=== PATIENT | female | born 1960 | race Caucasian/White ===

== ENCOUNTER 2017-08-07 19:40 | Emergency (ER) | payer BC, MEDICAID, OTHER ==
[2017-08-07] MEDS ORDERED: Ketorolac 60 MG/2 ML SDV IM ONE (19:59)
--- NOTE | 2017-08-07 20:00 | EDM.PDOC ---
ED HPI GENERAL MEDICAL PROBLEM - General Chief Complaint: Back Pain or Injury Stated Complaint: BACK PAIN Time Seen by Provider: 08/07/17 19:40 Source of Information: Reports: Patient History Limitations: Reports: No Limitations - History of Present Illness INITIAL COMMENTS - FREE TEXT/NARRATIVE: 56 y.o. w f came to the ed 5 days after she fell straight on her back on cocreate. She came to the ed today because she had pain at her right lower back , especially with movement. No N/V/D or any other acute medical issues. 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 Right Lower Back Pain Score (Numeric/FACES): 7 - Related Data Allergies Allergy/AdvReac Type Severity Reaction Status Date / Time beta blockers Allergy Rash Uncoded 03/31/15 20:18 Home Meds: Home Meds Acyclovir [Zovirax 5% Oint] 1 applic TOP Q3HR PRN 08/21/15 [History] Aspirin [Halfprin] 81 mg PO DAILY 08/21/15 [History] Carboxymethylcellulos/Glycerin [Refresh Optive Gel Eye Drops] 1 drop EYEBOTH ASDIRECTED PRN 08/21/15 [History] Cyanocobalamin (Vitamin B-12) [Cyanocobalamin Injection] 1,000 mcg IJ ASDIRECTED 08/21/15 [History] Ibuprofen [Advil] 400 mg PO Q6H PRN 08/21/15 [History] Levothyroxine 112 mcg PO DAILY 08/21/15 [History] Ciprofloxacin HCl [Cipro] 500 mg PO BID #20 tablet 08/07/17 [Rx] traMADol [Ultram] 50 mg PO Q4H PRN #10 tab 08/07/17 [Rx] Past Medical History Other Psychiatric History: hx of etoh abuse has been sober x 15 years Social & Family History - Tobacco Use Smoking Status *Q: Never Smoker Second Hand Smoke Exposure: No - Recreational Drug Use Recreational Drug Use: No ED ROS GENERAL - Review of Systems Review Of Systems: See Below Constitutional: Reports: No Symptoms HEENT: Reports: No Symptoms Respiratory: Reports: No Symptoms Cardiovascular: Reports: No Symptoms Endocrine: Reports: No Symptoms GI/Abdominal: Reports: No Symptoms : Reports: No Symptoms Musculoskeletal: Reports: Back Pain Skin: Reports: No Symptoms Neurological: Reports: No Symptoms Psychiatric: Reports: No Symptoms Hematologic/Lymphatic: Reports: No Symptoms Immunologic: Reports: No Symptoms ED EXAM,LOWER BACK PAIN/INJURY - Physical Exam Exam: See Below Exam Limited By: No Limitations General Appearance: Alert, WD/WN Eye Exam: Bilateral Eye: Normal Inspection Ears: Normal External Exam Nose: Normal Inspection Throat/Mouth: Normal Inspection, Normal Lips Head: Atraumatic, Normocephalic Neck: Normal Inspection, Supple, Non-Tender, Full Range of Motion Respiratory/Chest: No Respiratory Distress, Lungs Clear, Normal Breath Sounds, No Accessory Muscle Use, Chest Non-Tender Cardiovascular: Normal Peripheral Pulses, Regular Rate, Rhythm, No Edema, No Gallop GI/Abdominal: Normal Bowel Sounds, Soft, Non-Tender (Female) Exam: Deferred Rectal (Female) Exam: Deferred Back Exam: Normal Inspection, Paraspinal Tenderness (right sided) Extremities: Normal Inspection, Normal Range of Motion, Non-Tender, No Pedal Edema, Normal Capillary Refill Neurological: Alert, Normal Mood/Affect, Normal Dorsiflexion, CN II-XII Intact, Normal Plantar Flexion, Other (abnormal gait due to right lower back pain. ) Psychiatric: Normal Affect, Normal Mood Skin Exam: Warm, Dry, Intact, Normal Color, No Rash Lymphatic: No Adenopathy Course - Vital Signs Text/Narrative:: 56 y.o. w f came to the ed 5 days after she fell straight on her back on cocreate. She came to the ed today because she had pain at her right lower back , especially with movement. No N/V/D or any other acute medical issues. BP 133/ 80 RR 20 Temp 35.8 pulse 72 Pulse ox 100% on RA PE: WNWD WF with tender right lower back pain, paravertebral Labs: UA pos for UTI Imaging: Pt refused X rays. Impression: Low back pain after a fall last Wednesday, UTI Tx: Cipro, Toradol Reexam: Improved, pt was ambulating fine on D/C Plan: D/C with instructions Last Recorded V/S: Last Vital Signs Temp 35.8 C 08/07/17 19:57 Pulse 78 08/07/17 19:57 Resp 20 08/07/17 19:57 BP 133/80 08/07/17 19:57 Pulse Ox 100 08/07/17 19:57 - Orders/Labs/Meds Labs: Laboratory Tests 08/07/17 Range/Units 20:05 Urine Color Yellow (YELLOW) Urine Appearance Clear (CLEAR) Urine pH 5.0 (5.0-6.5) Ur Specific [place] 1.020 (1.010-1.025) Urine Protein Negative (NEGATIVE) mg/dL Urine Glucose (UA) Normal (NEGATIVE) mg/dL Urine Ketones Negative (NEGATIVE) mg/dL Urine Occult Blood Negative (NEGATIVE) Urine Nitrite Negative (NEGATIVE) Urine Bilirubin Negative (NEGATIVE) Urine Urobilinogen Normal (NEGATIVE) mg/dL Ur Leukocyte Esterase Large H (NEGATIVE) Urine RBC 0-5 (0) Urine WBC 5-10 (0) Ur Squamous Epith Cells Moderate H (NS,R,O) Urine Bacteria Moderate H (NS) Hyaline Casts Few H (NS) Urine Mucus Few H (NS) Meds: Medications Discontinued Medications Generic Name Dose Route Start Last Admin Trade Name Jaidenq PRN Reason Stop Dose Admin Ketorolac Tromethamine 60 mg 08/07/17 19:59 08/07/17 20:08 Toradol IM 08/07/17 20:00 60 mg ONETIME ONE Administration Levofloxacin 500 mg 08/07/17 20:28 08/07/17 20:32 Levaquin PO 08/07/17 20:29 500 mg ONETIME STA Administration Departure - Departure Time of Disposition: 20:31 Disposition: Home, Self-Care 01 Condition: Good Clinical Impression: UTI (urinary tract infection) Qualifiers: Urinary tract infection type: acute cystitis Hematuria presence: without hematuria Qualified Code(s): N30.00 - Acute cystitis without hematuria Back pain Qualifiers: Back pain location: low back pain Chronicity: acute Back pain laterality: right Sciatica presence: without sciatica Qualified Code(s): M54.5 - Low back pain Fall Qualifiers: Encounter type: initial encounter Qualified Code(s): W19.XXXA - Unspecified fall, initial encounter - Discharge Information Prescriptions: Ciprofloxacin HCl [Cipro] 500 mg PO BID #20 tablet traMADol [Ultram] 50 mg PO Q4H PRN #10 tab PRN Reason: severe pain Referrals: Holly Velez SITE DIRECTOR [Primary Care Provider] - Forms: ED Department Discharge Additional Instructions: Please apply ICE to lower back, Motrin 600 mg every 8 hours, Ultram for severe pain, ICE to lower back, Abx as recommended, please f/u, come back if your symptoms get worse acutely
[2017-08-07 20:03] VITALS: BP 133/80
[2017-08-07] MEDS ORDERED: Levofloxacin 500 MG Tab PO STA (20:28)
== END 2017-08-07 20:38 | disposition home or self-care (01) ==
LOC: FB.ED 19:40
DX: M54.5 Low back pain (principal); N30.00 Acute cystitis without hematuria; Z79.82 Long term (current) use of aspirin; Z88.8 Allergy status to other drugs, medicaments and biological substances; W01.198A Fall on same level from slipping, tripping and stumbling with subsequent striking against other object, initial encounter
CPT/HCPCS: 81001; 87086; 96372; 99283; A9270; J1885

== ENCOUNTER 2017-09-26 10:49 | Emergency (ER) | payer BC, OTHER ==
[2017-09-26] MEDS ORDERED: Lidocaine 1% 20 ML MDV INFILT ONE (10:50)
[2017-09-26 12:47] VITALS: BP 107/59
--- NOTE | 2017-09-29 09:34 | ER ---
DATE SEEN: 09/26/2017 TIME SEEN: The patient was seen at 1110 hours. HISTORY OF PRESENT ILLNESS: This 56-year-old woman who was found in the kitchen, cut her left dorsum of the MP joint distal to the MP joint and has mild bleeding and tenderness. No loss of sensation or change in range of motion. Otherwise, the patient is healthy. She is allergic to beta-linnea. She is on levothyroxine and has hypothyroidism, otherwise healthy. REVIEW OF SYSTEMS: Negative. PHYSICAL EXAMINATION: VITAL SIGNS: 128/72, heart rate 62, respirations 18, oxygen saturation 100%. 74.8 kg. BMI is 32.2 kg. HEENT: Without abnormality. LUNGS: Clear. HEART: Without murmur. ABDOMEN: Negative. Left hand, left 5th MP joint laceration is approximately 1.5 cm long. Wound was cleansed and injected with lidocaine and closed with 3 stitches of interrupted 4- 0 Ethilon. The patient did have this sutured. ASSESSMENT: Laceration of left hand, left finger. No involvement of tendons. PLAN: Sutures out in 10 to 14 days. Bacitracin to wound daily. /[id number] ESTRELLA/TYRA
== END 2017-09-26 12:45 | disposition home or self-care (01) ==
LOC: FB.ED 10:49
DX: S61.217A Laceration without foreign body of left little finger without damage to nail, initial encounter (principal); E03.9 Hypothyroidism, unspecified; W26.9XXA Contact with unspecified sharp object(s), initial encounter
CPT/HCPCS: 12001; 99283

== ENCOUNTER 2020-06-02 17:21 | Emergency (ER) | payer BC, OTHER ==
[2020-06-02 17:33] VITALS: BP 137/82; PULSE 66
--- NOTE | 2020-06-02 17:46 | EDM.PDOC ---
ED HPI GENERAL MEDICAL PROBLEM - General Chief Complaint: Laceration Stated Complaint: CUT TO FOREHEAD Time Seen by Provider: 06/02/20 17:41 Source of Information: Reports: Patient History Limitations: Reports: No Limitations - History of Present Illness INITIAL COMMENTS - FREE TEXT/NARRATIVE: Patient sustained a laceration to her left brow while siting her gun @1 hour ago. Last tetanus vaccine was less than 10 years ago (per patient). Denies any other complaints. 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: Psychiatric History: Reports: Other (See Below) Other Psychiatric History: hx of etoh abuse has been sober x 15 years Endocrine/Metabolic History: Reports: Hypothyroidism - Infectious Disease History Infectious Disease History: Reports: Chicken Pox - Past Surgical History GI Surgical History: Reports: Appendectomy Musculoskeletal Surgical History: Reports: Arthroscopic Knee Social & Family History - Family History Family Medical History: Noncontributory - Tobacco Use Tobacco Use Status *Q: Never Tobacco User - Caffeine Use Caffeine Use: Reports: None - Recreational Drug Use Recreational Drug Use: No ED ROS GENERAL - Review of Systems Review Of Systems: Comprehensive ROS is negative, except as noted in HPI. ED EXAM, SKIN/RASH Exam: See Below Exam Limited By: No Limitations General Appearance: Alert, WD/WN, No Apparent Distress Ears: Normal External Exam Nose: Normal Inspection Throat/Mouth: No Airway Compromise Head: Normocephalic, Other (2 cm left brow laceration, no active bleeding) Neck: Full Range of Motion Respiratory/Chest: No Respiratory Distress Extremities: Normal Range of Motion Neurological: Alert, Normal Cognition Psychiatric: Normal Affect, Normal Mood Skin: Other (as above) ED SKIN PROCEDURES - Laceration/Wound Repair Left Brow Appearance: Subcutaneous Distal NVT: Neuro & Vascular Intact Skin Prep: Saline Exploration/Debridement/Repair: No Foreign Material Found Closed with: Wound Adhesive Lac/Wound length In cm: 2 Drain Placement: No Sterile Dressing Applied: None Tetanus Status Addressed: Yes Complications: No Course - Vital Signs Last Recorded V/S: Last Vital Signs Temp 36.2 C 06/02/20 17:23 Pulse 66 06/02/20 17:23 Resp 18 06/02/20 17:23 BP 137/82 06/02/20 17:23 Pulse Ox 100 06/02/20 17:23 Departure - Departure Time of Disposition: 17:45 Disposition: Home, Self-Care 01 Condition: Good Clinical Impression: Laceration of brow without complication Qualifiers: Encounter type: initial encounter Qualified Code(s): S01.81XA - Laceration without foreign body of other part of head, initial encounter - Discharge Information *PRESCRIPTION DRUG MONITORING PROGRAM REVIEWED*: No *COPY OF PRESCRIPTION DRUG MONITORING REPORT IN PATIENT LJ: Not Applicable Instructions: Tissue Adhesive Wound Care, [id number] Referrals: Holly Velez GRAIN TRADER [Primary Care Provider] - Additional Instructions: Follow up with symptoms or signs of infection. Sepsis Event Note (ED) - Evaluation Sepsis Screening Result: No Definite Risk - Focused Exam Vital Signs: Vital Signs Temp Pulse Resp BP Pulse Ox 06/02/20 17:23 36.2 C 66 18 137/82 100
== END 2020-06-02 17:52 | disposition home or self-care (01) ==
LOC: FB.ED 17:21
DX: S51.012A Laceration without foreign body of left elbow, initial encounter (principal); S01.81XA Laceration without foreign body of other part of head, initial encounter; Z88.8 Allergy status to other drugs, medicaments and biological substances; W22.8XXA Striking against or struck by other objects, initial encounter
CPT/HCPCS: 12011; 99282; 99282-25

== ENCOUNTER 2022-01-21 19:33 | Emergency (ER) | payer BC, OTHER ==
[2022-01-21 20:03] VITALS: BP 123/78; PULSE 66
== END 2022-01-21 20:08 | disposition home or self-care (01) ==
LOC: FB.ED 19:33
DX: S63.91XA Sprain of unspecified part of right wrist and hand, initial encounter (principal); E03.9 Hypothyroidism, unspecified; Z79.899 Other long term (current) drug therapy; Z90.49 Acquired absence of other specified parts of digestive tract; Z88.8 Allergy status to other drugs, medicaments and biological substances; W22.8XXA Striking against or struck by other objects, initial encounter
CPT/HCPCS: 73130-RT; 99282; 99283-25

== ENCOUNTER 2022-05-28 19:17 | Emergency (ER) | payer OTHER ==
[2022-05-28] MEDS ORDERED: HYDROmorphone 2 MG/ML SDV IM ONE (19:41)
[2022-05-28] MEDS ORDERED: hydrOXYzine HCl 50 MG/ML SDV IM ONE (19:41)
[2022-05-28 20:32] VITALS: BP 186/88; PULSE 62
== END 2022-05-28 20:03 | disposition home or self-care (01) ==
LOC: FB.ED 19:17
DX: K40.90 Unilateral inguinal hernia, without obstruction or gangrene, not specified as recurrent (principal); Z88.8 Allergy status to other drugs, medicaments and biological substances; Z79.899 Other long term (current) drug therapy; Z90.49 Acquired absence of other specified parts of digestive tract
CPT/HCPCS: 96372; 99283; J1170; J3410

== ENCOUNTER 2022-09-27 20:35 | Emergency (ER) | payer OTHER ==
[2022-09-27 20:52] VITALS: BP 110/72; PULSE 74
== END 2022-09-27 21:13 | disposition home or self-care (01) ==
LOC: FB.ED 20:35
DX: M54.50 Low back pain, unspecified (principal); E03.9 Hypothyroidism, unspecified; Z79.899 Other long term (current) drug therapy; Z88.8 Allergy status to other drugs, medicaments and biological substances
CPT/HCPCS: 99283

== ENCOUNTER 2025-06-02 10:40 | Emergency (ER) | payer BC, OTHER ==
[2025-06-02 12:36] VITALS: BP 138/66; PULSE 60
== END 2025-06-02 11:52 | disposition home or self-care (01) ==
LOC: FB.ED 10:40
DX: S61.011A Laceration without foreign body of right thumb without damage to nail, initial encounter (principal); Z79.890 Hormone replacement therapy; Z79.899 Other long term (current) drug therapy; Z90.49 Acquired absence of other specified parts of digestive tract; Z90.710 Acquired absence of both cervix and uterus; W26.0XXA Contact with knife, initial encounter
CPT/HCPCS: 12002; 99282; J2003